=== PATIENT | female | born 1995 | race Caucasian/White ===

== ENCOUNTER 2018-04-05 01:28 | Emergency (ER) | payer OTHER ==
[~2018-04-05] VITALS: Ht 162.6 cm; Wt 149.7 kg
[~2018-04-05 01:28] MED LIST: HYDROCODONE/ACE1 TA1 PO; HYDROXYZINE HCL50 MG PO; MEDROL DOSEPAK1 PAC PO; MOTRIN800 MG PO
[2018-04-05 03:09] VITALS: BP 149/84
--- NOTE | 2018-04-05 03:33 | ED THROAT/DENTAL COMPLAINT ---
History of Present Illness General Chief Complaint: Sore Throat, Dental Pain Stated Complaint: EXTREME DENTAL PAIN PER PT Source: patient Exam Limitations: no limitations Vital Signs & Intake/Output Vital Signs & Intake/Output Vital Signs Date Time Temp Pulse Resp B/P B/P Pulse O2 O2 Flow FiO2 Mean Ox Delivery Rate 04/05 0309 98.3 76 18 149/84 99 Room Air Allergies Coded Allergies: NO KNOWN ALLERGIES (10/19/15) Reconcile Medications Amoxicillin/Potassium Clav (Augmentin 875-125 Tablet) 875 MG-125 MG TABLET 1 TAB PO BID dental infection HYDROCODONE/ACETAMINOPHEN (Hydrocodon-Acetaminophen 5-325) 5 MG-325 MG TABLET 1-2 TAB PO Q8P PRN PAIN Hydroxyzine Hydrochloride (Hydroxyzine HCl) 50 MG TAB 1 TAB PO TID PRN ITCHING Ibuprofen (Motrin) 800 MG TAB 1 TAB PO Q8P PRN PAIN Ibuprofen 800 MG TABLET 1 TAB PO TID PRN pain Methylprednisolone. (Medrol) 1 PAC PAC 0 PO DAILY KIDNEY STONE USE DIRECTED Oxycodone HCl/Acetaminophen (Percocet 5-325 MG Tablet) 5 MG-325 MG TABLET 1 TAB PO 4XDP PRN PAIN six...[id number] Triage Note: PATIENT REPORTS TO ED WITH C/O LEFT JAW/DENTAL PAIN X 1 DAY. PATIENT STATES "VIDHYA TRIED EVERYTHING, ASPIRIN, ECEDRIN, MOTRIN, AND I WENT THROUGH A WHOLE TUBE OF EXTRA STREGNTH ORAJEL WITH NO RELIEF". PATIENT DENIES CALLING A DENTIST FOR APPOINTMENT. Triage Nurses Notes Reviewed? yes Onset: Abrupt Duration: hour(s): Timing: recent history Injury Environment: home Severity: moderate Modifying Factors: Improves With: rest. : No Patient currently breastfeeds: No HPI: 22 yo woman "I had a migraine and then afterwards I had pain in my left jaw... it feels like an infected cavity... and I feel it radiate down my shoulder and near my ear." She notes no fever, chills, difficulty breathing or chewing. She is otherwise well. Past History Travel History Traveled to [place] past 21 day No Medical History Any Pertinent Medical History? see below for history Neurological: NONE EENT: NONE Cardiovascular: NONE Respiratory: NONE Gastrointestinal: NONE Hepatic: NONE Renal: NONE Musculoskeletal: NONE Psychiatric: depression Endocrine: NONE Blood Disorders: NONE Cancer(s): NONE SITE DIRECTOR/Reproductive: ?PCOS Surgical History Surgical History: N Psychosocial History What is your primary language Bulgarian Tobacco Use: Never used Family History Hx Contributory? No Review of Systems Review of Systems Constitutional: Reports: no symptoms. EENTM: Reports: no symptoms. Respiratory: Reports: no symptoms. Cardiovascular: Reports: no symptoms. GI: Reports: no symptoms. Genitourinary: Reports: no symptoms. Musculoskeletal: Reports: no symptoms. Skin: Reports: no symptoms. Neurological/Psychological: Reports: no symptoms. Hematologic/Endocrine: Reports: no symptoms. Immunologic/Allergic: Reports: no symptoms. All Other Systems: Reviewed and Negative Physical Exam Physical Exam General Appearance: well developed/nourished, no apparent distress Head: atraumatic, normal appearance Eyes: Right: normal appearance, PERRL. Ears: Bilateral: canal normal, Tympanic normal, discharge. Nose: normal inspection, active bleeding Mouth/Throat: normal mouth inspection, pharynx normal Neck: normal inspection, supple, full range of motion Cardiovascular/Respiratory: normal breath sounds, normal peripheral pulses, regular rate/rhythm Gastrointestinal: organmegaly, hernia Back: normal inspection, normal range of motion Neurologic/Psych: no motor/sensory deficits, awake, alert, oriented x 3 Skin: intact, normal color, warm/dry Core Measures ACS in differential dx? No Sepsis Present: No Sepsis Focused Exam Completed? No Progress Differential Diagnosis: dental caries, dental abscess vs other. Plan of Care: sent rx for antibiotics, nsaids, percocet #3... pt referred to a dentist. Departure Departure Disposition: HOME OR SELF CARE Condition: Stable Clinical Impression Primary Impression: Dental caries Secondary Impressions: Migraine headache Referrals: Tia Villafuerte APRN (PCP/Family) Departure Forms: Customer Survey General Discharge Information List- Dental Clinic List Prescriptions: Current Visit Scripts Amoxicillin/Potassium Clav (Augmentin 875-125 Tablet) 1 TAB PO BID #20 TAB Ibuprofen 1 TAB PO TID PRN pain #30 TAB Oxycodone HCl/Acetaminophen (Percocet 5-325 MG Tablet) 1 TAB PO 4XDP PRN PAIN #6 TAB six...[id number]
[2018-04-05] MEDS ORDERED: IBUPROFEN800 M1 PO (03:37)
[2018-04-05] MEDS ORDERED: PERCOCET 5-3251 EACH PO (03:37)
[2018-04-05] MEDS ORDERED: AUGMENTIN 875-1 EACH PO (03:37)
== END 2018-04-05 03:40 ==
LOC: ERH 01:28
DX: K02.9 Dental caries, unspecified (principal); G43.909 Migraine, unspecified, not intractable, without status migrainosus